=== PATIENT | female | born 2000 | race Hispanic/Latino ===

== ENCOUNTER 2024-03-12 19:25 | Emergency (ER) | payer OTHER ==
[~2024-03-12] VITALS: Ht 162.6 cm; Wt 93.0 kg
[~2024-03-12 19:25] MED LIST: IBUPROFEN400 MG PO
[2024-03-12 20:12] VITALS: PULSE 78; RESP 18; TEMP 98.2
[2024-03-12] MEDS: CEFTRIAXONE 1 GM VIAL IM ONE (22:04)
[2024-03-12] MEDS ORDERED: LIDOCAINE HCL 1% LOCAL INJ 20 ML VIAL ONE (22:05)
[2024-03-12] MEDS ORDERED: ZITHROMAX250 MG PO (22:15)
[2024-03-12 22:25] VITALS: BP 141/65; PULSE 78; RESP 18; TEMP 98.2; O2SAT 99
== END 2024-03-12 22:25 | disposition home or self-care (01) ==
LOC: FSED 19:28
DX: O26.891 Other specified pregnancy related conditions, first trimester (principal); Z72.51 High risk heterosexual behavior; R30.0 Dysuria
CPT/HCPCS: 81003; 81025; 96372; 99282; J0696; J2001